=== PATIENT | male | born 1970 | race Caucasian/White ===

== ENCOUNTER 2023-06-13 19:03 | Emergency (ER) | payer BC, SELFPAY ==
[2023-06-13 19:49] VITALS: BMI 27.7
[2023-06-13 19:50] VITALS: BP 158/99; PULSE 71; RESP 20; TEMP 36.7; O2SAT 99; BMI 27.7
--- NOTE | 2023-06-13 19:51 | XR_ITS ---
PROCEDURE INFORMATION: Exam: XR Left Shoulder Exam date and time: 06/13/2023 7:52 PM Age: 52 years old Clinical indication: Injury or trauma; Fall; Blunt trauma (contusions or hematomas); Patient HX: Patient tripped over and dog and fell injuring left shoulder/proximal humerus area. Patient cannot move arm for proper positioning. TECHNIQUE: Imaging protocol: Radiologic exam of the left shoulder. Views: 2 or more views. COMPARISON: No relevant prior studies available. FINDINGS: Bones/joints: No fracture or dislocation. Mild degenerative change of the acromioclavicular joint. Soft tissues: Normal. IMPRESSION: No acute findings.
--- NOTE | 2023-06-13 19:51 | XR_ITS ---
PROCEDURE INFORMATION: Exam: XR Left Humerus Exam date and time: 06/13/2023 7:58 PM Age: 52 years old Clinical indication: Injury or trauma; Fall; Blunt trauma (contusions or hematomas); Arm, upper; Patient HX: Patient tripped over a dog and fell injuring left shoulder/humerus area. He cannot move arm for proper positioning due to severe pain. TECHNIQUE: Imaging protocol: Radiologic exam of the left humerus. Views: 2 or more views. COMPARISON: CR XR SHOULDER LT MIN 2V 06/13/2023 7:52 PM FINDINGS: Bones/joints: Normal. Soft tissues: Normal. IMPRESSION: No acute findings.
--- NOTE | 2023-06-13 19:52 | PC.NURSE ---
Notified radiology of xrays
[2023-06-13 20:41] VITALS: BP 141/75; PULSE 78; O2SAT 97
[2023-06-13 21:00] VITALS: BP 133/88; PULSE 70; O2SAT 98
--- NOTE | 2023-06-13 21:58 | PC.WOUNDNOTE ---
in room talking with patient at this time.
--- NOTE | 2023-06-13 22:03 | HMH.EDGENADL ---
Discharge Plan Disposition Patient Disposition: Home, Self-Care Referrals Follow up/Referrals: Enedina Gallardo [Primary Care Provider] - See instructions Ebenezer Pickens DO [Staff Physician] - See instructions Activity Restrictions/Add. Instructions Additional Instructions/Restrictions: At this time it was felt you are safe to be discharged home. If new or worsening symptoms please do not hesitate to return the emergency department. If symptoms persist please follow-up with Dr. Pickens as discussed Clinical Impressions Clinical Impression: Neurapraxia, Acute shoulder pain Stand Alone Forms Stand Alone Forms: Work/School Release Discharge ED Provider: Dharmesh Ann General Adult HPI General Chief complaint: Extremity Injury, Upper Stated complaint: AO 06/13/23 1840 Injury Left shoulder injury Time Seen by Provider: 06/13/23 21:00 Mode of Arrival: Ambulatory Source of Information: Patient Limitations: Physical Limitations Description of Symptoms (Recalled from ER Triage Doc. by RN): 52 year old male presents to ER with complaints to left shoulder pain after falling on ICE approx 1-2 hours ago [employer]> Patient states the pain is 3/10 with no movement and 10/10 with ROM. History of Present Illness HPI narrative: Patient is a 52-year-old right-handed male with past medical history of previous traumatic injuries to the left upper extremity and shoulder and neck who presents emergency department for evaluation of traumatic injury sustained in a fall. Patient slipped on ice prior to arrival landing on his left upper extremity and shoulder. He is complaining of shoulder pain and limited range of motion causing him to present here for continued evaluation. No other acute complaints at this time. Patient denies hitting his head or blood thinners. Related Data Allergies Allergy/AdvReac Type Severity Reaction Status Date / Time oxycodone [From OxyContin] AdvReac Other Verified 06/13/23 19:51 [facility] Disclaimer: The information contained in this section may have been updated after the patient was seen, as this information can be updated by other users. Social History Smoking Status: Former smoker alcohol intake: never current occupational status: other Travel in the last 8 weeks: None ROS Obtained: Yes Systems reviewed as appropriate & no additional complaints except as documented Physical Exam General General appearance: alert and in no apparent distress Head Head exam: atraumatic and normocephalic Eye Eye exam: Present PERRL and EOMI ENT ENT exam: Present mucous membranes moist Neck Neck exam: Present normal inspection; Absent tenderness Chest Chest inspection: Present normal inspection and symmetric chest wall rise Respiratory Respiratory exam: Absent respiratory distress Cardiovascular Cardiovascular exam: Present regular rate and normal rhythm Abdominal Exam Abdominal exam: Present soft Extremities Exam Extremities exam: Present other (2+ left radial pulse, no tenderness over the forearm or elbow. Limited abduction of the shoulder secondary to severe pain. No tenderness over the clavicle.) Neurological Exam Neurological exam: Present alert and oriented X3 Psychiatric Psychiatric exam: Present normal affect Skin Skin exam: Present warm and dry Medical Decision Making Edi Inquiry Pt receiving controlled substance: No Vital Signs: 06/13/23 19:50 06/13/23 20:41 06/13/23 21:00 Temperature 98.1 F Temperature Source Oral Pulse Rate 78 70 Pulse Rate [Right Radial] 71 Respiratory Rate 20 Blood Pressure 141/75 H 133/88 Blood Pressure [Right Arm] 158/99 H Blood Pressure Mean 87 Blood Pressure Mean [Right Arm] 118 Blood Pressure Source [Right Arm] Automatic Cuff Blood Pressure Position [Right Arm] Sitting 02 Sat by Pulse Oximetry 99 97 98 Oxygen Delivery Method Room Air 06/13/23 22:18 Temperature 98.1 F Temperature Source Pulse Rate 77 Pulse Rate [Right Radial] Respiratory Rate 18 Blood Pressure 146/93 H Blood Pressure [Right Arm] Blood Pressure Mean Blood Pressure Mean [Right Arm] Blood Pressure Source [Right Arm] Blood Pressure Position [Right Arm] 02 Sat by Pulse Oximetry Oxygen Delivery Method Orders (Tests/Meds): ORDERS Category Date Time Status XR humerus LT Stat Exams 06/13/23 19:51 Completed XR shoulder LT min 2V Stat Exams 06/13/23 19:51 Completed Medical Decision Narrative: In summary patient is a 52-year-old male with past medical history described above presents emergency department for evaluation of traumatic injury sustained in a fall. Patient is hemodynamically stable nontoxic-appearing arrival, afebrile. Differential includes fracture, dislocation, rotator cuff injury, among others. Workup will be limited to plain films of the left shoulder and humerus given history and physical exam. Shoulder x-ray informally interpreted by me, no obvious fracture or significant dislocation. Formal read shows no acute pathology. Given that patient has had some improvement of his distal extremity range of motion I suspect brachial plexopathy with a component of neuropraxia is present. However given his significant limited range of motion at the shoulder he may have muscular tenderness or ligamentous injury. Given this patient was placed in a sling and will follow-up with Dr. Pickens on an outpatient basis. Critical Care Critical Care Time Critical Care Time: No
[2023-06-13 22:18] VITALS: BP 146/93; PULSE 77; RESP 18; TEMP 36.7
== END 2023-06-13 22:25 | disposition home or self-care (01) ==
PROVIDERS: Emergency Provider Emergency Medicine; PCP Nurse Practitioner Family
DX: M25.512 Pain in left shoulder (principal); S44.92XA Injury of unspecified nerve at shoulder and upper arm level, left arm, initial encounter; Z87.891 Personal history of nicotine dependence; W01.0XXA Fall on same level from slipping, tripping and stumbling without subsequent striking against object, initial encounter
CPT/HCPCS: 73030; 73060; 99284